=== PATIENT | female | born 1990 | race Caucasian/White ===

== ENCOUNTER → 2021-05-06 13:02 | Outpatient (CLI) | payer BC, SELFPAY ==
--- NOTE | ~2021-05-06 | US_ITS ---
EXAMINATION: US OB <= 14 weeks fetus DATE: 05/06/2021 13:32 INDICATION: Uncertain dates. TECHNIQUE: Real-time transabdominal obstetric ultrasound. FINDINGS: No prior studies for comparison. The uterus measures 13.2 x 5.7 x 7.3 cm. There is an intrauterine gestational sac, with pole id entified. The crown rump length measures 2.33 cm, which correlates with a estimated gestational age of 9 weeks 0 days. heart tones are identified measuring 168 BPM. IMPRESSION: 1. SL IUP with an EGA of 9 weeks, 0 days (EDC by current ultrasound of 12/09/2021). Reviewed, dictated and finalized at location A. E TAILER IMPRESSION: 1. SL IUP with an EGA of 9 weeks, 0 days (EDC by current ultrasound of 2).
== END ==
PROVIDERS: Visit Provider Obstetrics & Gynecology
DX: Z34.91 Encounter for supervision of normal pregnancy, unspecified, first trimester (principal); Z3A.09 9 weeks gestation of pregnancy
CPT/HCPCS: 76801

== ENCOUNTER 2021-11-22 13:56 | Outpatient (RCR) | payer BC, SELFPAY ==
[2021-10-18 10:03] VITALS: BP 107/53; PULSE 80
[2021-11-22 14:35] VITALS: BP 108/66
== END 2021-12-27 14:54 | disposition home or self-care (01) ==
LOC: ANHOBOP 13:56
PROVIDERS: Visit Provider Obstetrics & Gynecology Gynecology
DX: O24.419 Gestational diabetes mellitus in pregnancy, unspecified control (principal); Z3A.32 32 weeks gestation of pregnancy; Z3A.37 37 weeks gestation of pregnancy
CPT/HCPCS: 59025

== ENCOUNTER 2021-12-01 15:55 | Inpatient (IN) | payer BC, SELFPAY ==
[2021-12-01] VITALS (16 sets, daily range): BP systolic 102–125; BP diastolic 54–81; PULSE 62–106; RESP 16–18; TEMP 35.9–36.1; O2SAT 99; BMI 45.2
[2021-12-01 16:53] LABS: Basophils Percent Auto 0.1 % (0.2-1.2); Eosinophils Absolute Auto 0.2 K/mm3 (0-0.3); Eosinophils Percent Auto 1.4 % (0-4.4); Hematocrit 36.7 % (37.0-47.0); Hemoglobin 12.2 g/dL (12.0-15.0); Immature Granulocyte Absolute 0.06 K/mm3 (0.00-0.031); Immature Granulocyte Percent A 0.4 % (0-0.5); Lymphocytes Absolute Auto 2.61 K/mm3 (0.9-3.2); Lymphocytes Percent Auto 18.8 % (18.3-44.2); Mean Corpuscular HGB Conc 33.2 g/dl (32-36); Mean Corpuscular Hemoglobin 27.5 pg (26-34); Mean Corpuscular Volume 82.7 fl (80-100); Mean Platelet Volume 10.1 fl (7.4-10.4); Monocytes Percent Auto 7.3 % (2.6-8.5); Platelet Count Result 405 k/mm3 (150-375); Red Blood Count 4.44 M/mm3 (4.2-5.4); Red Cell Distribution Width 14.1 % (11.5-14.5); White Blood Count 13.9 K/mm3 (4.5-10.0)
[2021-12-01] MEDS: DINOPROSTONE 10 MG VAG INSERT VAGINAL (16:56)
--- NOTE | 2021-12-01 17:02 | LDADM ---
This patient, Betty Sanford, was admitted to Labor/Delivery/Recovery 107 on 12/01/21 at 15:55. Plans for labor, pain management and were discussed with patient. Patient/family oriented to hospital policies and general routines including ID bracelet, bed and alarms, visiting hours, pain management, procedures, bathroom and other care routines, personal items, smoking policy, room service/diet and guest tray routines, infant security routines, and visiting hours. Patient/Family are encouraged to report perceived risks to care and to ask questions if they do not understand what they are told or what they should do. See OBIX for further documentation.
[2021-12-01 17:11] LABS: Glucose Point of Care 139 mg/dl (65-105)
--- NOTE | 2021-12-01 17:11 | WPDANESEPP ---
Anes - Eval Pre Procedure Procedure: Labor epidural Date/Time: 12/01/21 17:11 Pre Op Diagnosis: IOL Patient Data Age: 31 Gender: F Height: 1.71 m Weight: 133 kg Last Vital Signs Pulse 99 12/01/21 17:00 BP 117/59 L 12/01/21 17:00 O2 Del Method Room Air 12/01/21 16:26 Allergies Allergy/AdvReac Type Severity Reaction Status Date / Time Penicillins Allergy Rash Verified 11/13/21 12:32 Home Medications Medication Instructions Recorded Confirmed Type aspirin 81 mg tablet,delayed 81 mg PO DAILY 11/13/21 11/13/21 History release (Owen Low Dose Aspirin) insulin NPH isoph U-100 human 100 8 unit subcut HS 11/13/21 11/13/21 History unit/mL subcutaneous suspension (Novolin N NPH U-100 Insulin isophane) prenat.vits,tim,koq-cfcr-koiaa 1 tablet PO DAILY 11/13/21 11/13/21 History Laboratory Tests 12/01/21 12/01/21 12/01/21 16:45 16:46 16:46 WBC 13.9 K/mm3 H K/mm3 (4.5-10.0) RBC 4.44 M/mm3 M/mm3 (4.2-5.4) Hgb 12.2 g/dL g/dL (12.0-15.0) Hct 36.7 % L % (37.0-47.0) MCV 82.7 fl fl (80-100) MCH 27.5 pg pg (26-34) MCHC 33.2 g/dl g/dl (32-36) RDW 14.1 % % (11.5-14.5) Plt Count 405 k/mm3 H k/mm3 (150-375) MPV 10.1 fl fl (7.4-10.4) Immature Gran % (Auto) 0.4 % % (0-0.5) Neut % (Auto) 72.0 % % (45.5-73.1) Lymph % (Auto) 18.8 % % (18.3-44.2) [place] % (Auto) 7.3 % % (2.6-8.5) Eos % (Auto) 1.4 % % (0-4.4) Baso % (Auto) 0.1 % L % (0.2-1.2) Lymph # (Auto) 2.61 K/mm3 K/mm3 (0.9-3.2) [place] # (Auto) 1.0 K/mm3 H K/mm3 (0.1-0.6) Eos # (Auto) 0.2 K/mm3 K/mm3 (0-0.3) Baso # (Auto) 0.0 K/mm3 K/mm3 (0.0-0.1) Abs Immat Gran (auto) 0.06 K/mm3 H K/mm3 (0.00-0.031) Absolute Neuts (auto) 10.0 K/mm3 H K/mm3 (1.3-6.7) Absolute Nucleated RBC 0.0 K/mm3 K/mm3 (0.0-0.012) Nucleated RBC % 0.0 % % (0.0-0.2) POC Capillary Glucose Pending RPR Pending Blood Type Antibody Screen 12/01/21 16:46 WBC RBC Hgb Hct MCV MCH MCHC RDW Plt Count MPV Immature Gran % (Auto) Neut % (Auto) Lymph % (Auto) [place] % (Auto) Eos % (Auto) Baso % (Auto) Lymph # (Auto) [place] # (Auto) Eos # (Auto) Baso # (Auto) Abs Immat Gran (auto) Absolute Neuts (auto) Absolute Nucleated RBC Nucleated RBC % POC Capillary Glucose RPR Blood Type Pending Antibody Screen Pending Patient hx anesthesia problems: none Family hx anesthesia problems: none Results Review: All pre-operative results and documents have been reviewed as part of the pre-operative evaluation. [facility] Past Medical History Medical History (Updated 12/01/21 @ 17:12 by Katey Leach CRNA) GDM (gestational diabetes mellitus), class A1 Morbid obesity Family History Family History Father Emphysema lung Sibling Abnormality, congenital Sibling Mother Hypertension Type 2 diabetes mellitus Sibling Sibling Abnormality, congenital Grandparent Diabetes mellitus Social History Social History Smoking status: Never smoker Substance use: never Spiritual care concerns: No Exam Day of Procedure 12/01/21 17:11 Patient weight: morbidly obese Heart: regular rate and rhythm and murmur Lungs: normal air movement Airway: Mallampati scale Neurological: alert and oriented
[2021-12-01] MEDS: INSULIN HUMAN NPH (*BKC) 100 UNITS/ML 8 UNITS SUB-Q (22:12)
[2021-12-01 22:17] LABS: Glucose Point of Care 116 mg/dl (65-105)
[2021-12-02] VITALS (141 sets, daily range): BP systolic 78–128; BP diastolic 37–94; PULSE 16–118; RESP 18; TEMP 35.8–36.8; O2SAT 94–100
[2021-12-02 01:57] LABS: Glucose Point of Care 104 mg/dl (65-105)
[2021-12-02] MEDS: fentaNYL CITRATE INJ (*CRX) 100 MCG/2 ML VIAL 50 MCG IV PUSH ×2 (02:36→10:08)
[2021-12-02 06:25] LABS: Glucose Point of Care 108 mg/dl (65-105)
[2021-12-02] MEDS: LACTATED RINGERS 1,000 ML 125 ML IV CONT ×2 (06:28→15:49)
[2021-12-02] MEDS: OXYTOCIN 30 UNITS/NS 500 ML 30 UNITS/500 ML BAG 6 UNITS IV CONT (06:29)
[2021-12-02 07:33] LABS: Rapid Plasma Reagin Non-Reactive (NonReactive)
--- NOTE | 2021-12-02 07:53 | WPDOBADMIT ---
Obstetrics - Admit Note Admission Note: record reviewed. No pertinent additions to the history and/or any subsequent changes in the physical findings that are not consistent with the expected course of the were found. Additions to the history and/or subsequent changes in the physical findings follow. None.
--- NOTE | 2021-12-02 07:54 | PM.OBPNLAB ---
Pain Control Date/time seen: 12/02/21 07:30 Pain control: tolerating well Comments: Having some back pressure and mild cramping Pelvic Exam Dilation (cm): 1 (1.5) Effacement (%): 40 station: -3 Amniotic membrane status: Intact Comments: Vertex Contractions Monitor mode: External Contraction pattern: Irregular Contraction intensity: Mild Status status: Category ll Comments: Occasional variable deceleration. Reassured by moderate variability and accelerations. Assessment and Plan Pitocin rate (mU/min): 4 (Decreased to 2) Assessment: induction ongoing Comments: Discussed plan of care with patient and her spouse. Discussed option for amniotomy versus Eldridge balloon placement. Discussed risks and benefits and expectations of both options. Patient desires Eldridge balloon placement at this time. Eldridge balloon placed through the patient's cervix easily and inflated with 60 mL sterile saline. Tubing secured patient's thigh. Patient tolerated procedure very well with minimal cramping. Pitocin decreased to 2 milliunits per minute due to frequent contraction pattern. Plan to titrate Pitocin up as needed to achieve adequate contraction pattern. Patient may have epidural upon request. When Eldridge balloon is expelled plan for amniotomy. Again discussed plan of care with patient and her spouse and answered questions. Anticipate vaginal .
[2021-12-02 10:18] LABS: Glucose Point of Care 113 mg/dl (65-105)
--- NOTE | 2021-12-02 12:55 | PM.OBPNLAB ---
Pain Control Date/time seen: 12/02/21 12:55 Pain control: tolerating well Pelvic Exam Dilation (cm): 4 (1.5) Effacement (%): 50 station: -3 Amniotic membrane status: Intact Contractions Monitor mode: External Contraction pattern: Irregular Contraction intensity: Mild Status status: Category l Assessment and Plan Assessment: induction ongoing Comments: CNM to bedside. Patient sitting up in bed reports intermittent contractions and cramping. Her partner is present and supportive. Pitocin infusion remains off. Discussed plan of care and recommended exam at this time. Eldridge balloon expelled easily with gentle traction. Cervix 4/50/3 with bulging bag of water and head present. head not ballotable. Discussed plan of care and recommendation for amniotomy. Also discussed option for scalp electrode to enhance monitoring. Patient consents to both. Amniotomy performed with large amount of clear fluid returned. FSE applied successfully. Recommend upright positions and frequent repositioning. Patient plans epidural placement at some point. Plan cervical exam in 2 hours. If no change would start Pitocin. Anticipate vaginal . Blood sugars remained under 120. If over 120 would recommend starting insulin infusion.
[2021-12-02] MEDS: FAMOTIDINE 20 MG TABLET PO (14:02)
[2021-12-02 14:27] LABS: Glucose Point of Care 102 mg/dl (65-105)
--- NOTE | 2021-12-02 17:23 | PM.OBPNLAB ---
Pain Control Date/time seen: 12/02/21 17:20 Pain control: tolerating well and epidural Contractions Monitor mode: External Contraction pattern: Regular Contraction intensity: Moderate Status status: Category ll Comments: Occasional variable decel. Reassured by moderate variability and multiple accelerations. Assessment and Plan Assessment: induction ongoing Plan: continuous present management Comments: Plan to increase pitocin per protocol to achieve adequate contraction pattern. Plan for accuchecks q 2 hours when 6cm or more.
[2021-12-02 18:38] LABS: Glucose Point of Care 78 mg/dl (65-105)
[2021-12-02] MEDS: LACTATED RINGERS 1,000 ML 999 ML IV CONT ×2 (21:08→22:49)
[2021-12-02] MEDS: ONDANSETRON INJ 4 MG/2 ML VIAL IV PUSH (22:49)
[2021-12-03] VITALS (15 sets, daily range): BP systolic 101–141; BP diastolic 49–75; PULSE 56–87; RESP 16–18; TEMP 36.3–37.1; O2SAT 97–100
[2021-12-03] MEDS: OXYTOCIN 30 UNITS/NS 500 ML 30 UNITS/500 ML BAG 125 UNITS IV CONT (01:02)
[2021-12-03 01:19] LABS: Glucose Point of Care 94 mg/dl (65-105)
--- NOTE | 2021-12-03 01:19 | PM.OBPRVD ---
OB - Delivery Note Procedure Delivery date: 12/03/21 Procedure: Events: Gestational Diabetes (GDMA2) Induction method: Per Pitocin Protocol and Per Cervidil Protocol Delivery augmentation: Rupture of Membranes Delivery monitor: External FHT, External Uterine, Internal FHT and Internal Uterine Route of delivery: Episiotomy description: None Laceration Description: Perineal - 2nd Degree and Vaginal Delivery repair: vicryl Specimen: Yes Quantitative Blood Loss (ml): 350 Anesthesia type: Epidural Disposition: Floor Narrative: Patient progressed to complete and began pushing with contractions. Patient made steady progress and CNM was called for . CNM arrived and patient was slightly. Patient pushed with contractions and brought the head to a full crown in a very controlled manner. She delivered the head and the remainder of the body with the next contraction. The was placed skin to skin. there was at least 60 seconds of delayed cord clamping. After that time the cord was doubly clamped and cut. Gentle traction and uterine massage was used to deliver the placenta. The placenta delivered in the normal fashion and was intact. Three vessels present. A second-degree vaginal and perineal laceration was repaired using 3-0 Vicryl suture in a normal fashion. There was excellent hemostasis the remains in the delivery room with the mother and is . Baby Date of : 12/03/21 Time of : 00:29 Weeks of gestation at delivery: 39 gender: Female Weight (pounds): 8 Weight (ounces): 13 presentation: vertex position: Left Occiput Anterior Placenta delivery description: Spontaneous Cord Vessel Description: 3 Vessels and Delayed Cord Clamping score one minute: 9 score five minutes: 9
--- NOTE | 2021-12-03 01:24 | PM.OBDSVD ---
DS: Admitting Diagnosis Discharge Date 12/05/21 Admitting Diagnosis IUP at 39 weeks. GDMA2. Rubella Non-Immune OB - DS: Summary Hospital Course Hospital Course: Uncomplicated OB Procedures : NST and Ultrasound OB Procedures Intrapartum: Spontaneous Vag Delivery OB Procedures: : Other (MMR vaccination) Peripartum Data Delivery Method: Natural Vaginal Laceration Description: Perineal - 2nd Degree and Vaginal - 2nd Degree Episiotomy description: None complications: none Status at Discharge Overall status at discharge: patient is progressing back to baseline Time Spent with Patient Time attestation: Total time spent providing and/or coordinating discharge services: Exam Narrative: Alert and oriented. Mood is pleasant and cooperative. Urinating without difficulty. Denies passing any large clots. Perineum with minimal edema. Const: General: no acute distress Orientation/consciousness: patient oriented x3 Limitations: no limitations Resp: Effort & Inspection: normal respiratory effort Auscultation: clear to auscultation bilaterally Cardio: Rate: regular rate GI: Inspection: normal to inspection Neuro: General: patient oriented x3 Extrem: General: normal to inspection Psych: Appearance: grossly normal Mental Status: mental status grossly normal Affect: normal affect Thought process: Normal thought process present DS: Data Data Completed and Pending Pending studies at discharge: Pending at discharge 12/03/21 00:38 Surgical [PTH] Routine Labs on day of discharge: Labs from last 24 hours 12/02/21 12/02/21 12/02/21 21:42 18:34 14:23 POC Capillary Glucose 94 78 102 RPR 12/02/21 12/02/21 12/02/21 10:15 06:21 01:51 POC Capillary Glucose 113 H 108 H 104 RPR 12/01/21 16:46 POC Capillary Glucose RPR Non-reactive Discharge Plan Discharge Attending physician on discharge: Amanda Martinez Consulting providers: Bernadine Juarez ; Katey Leach ; Steph Aguilar Discharging Clinician: Amanda Martinez Anticipated Discharge Date/Time: 12/05/21 01:28 Patient Disposition: Home, Self-Care Activity: may shower and no straining Diet: as tolerated Discharge Instructions: Education: Mom and Baby Guide Given to: Mother Follow-Up: Call your delivering provider's office for an appointment to be seen in: Call office for appointment Mom and baby should come to the [facility] for the follow-up appointment. Appointment Date/Time: December 06, 2021 at 10:00 am What to expect at your follow-up visit: Physical Assessment Call [phone] if you are unable to keep your appointment time. BREAST CARE: * Wear a snug supportive bra. * For engorgement discomfort: Breast Feeding: * Apply warm moist washcloths * Express milk as needed to relieve engorgement * Wear loose clothing * For sore nipples: * Identify correct latch-on * Apply warm moist washcloths before and after nursing * Air dry nipples after nursing * May apply Lansinoh cream to nipples PERINEAL CARE: * Until bleeding stops, use your ean bottle after urinating * Change your pad frequently throughout the day * You may take sitz baths several times a day (fill your bathtub with warm water and soak for 20 minutes.) Do NOT bathe in the water * No tub baths until seen by your physician - You may shower ACTIVITY: * Rest as much as possible. * Do not exercise or lift anything heavier than your baby (such as laundry or other children.) * Avoid stairs or driving as much as possible. * Do not put anything into the vagina. No douching, tampons, or sexual activity until seen by physician. NOTIFY PHYSICIAN IF YOU HAVE ANY QUESTIONS OR IF ANY OF THE FOLLOWING SYMPTOMS OCCUR: * If your perineum becomes red, swollen, or more painful than what you have experienced in the hospital. * If your
[2021-12-03] MEDS: ACETAMINOPHEN 325 MG TABLET 650 MG PO ×3 (02:36→17:22)
[2021-12-03] MEDS: IBUPROFEN 600 MG TABLET PO ×3 (02:36→17:22)
[2021-12-03] MEDS: WITCH HAZEL 40 PADS 1 PAD TOPICAL (02:38)
[2021-12-03] MEDS: BENZOCAINE 20% AER SPR (*SP) 56 GM CAN 1 SPRAY TOPICAL ×2 (02:38→09:29)
--- NOTE | 2021-12-03 03:27 | ADMGEN ---
This patient, Betty Sanford, was admitted to OB 2nd Floor Room 283-00. Patient/family oriented to hospital policies and general routines including ID bracelet, bed and alarms, visiting hours, pain management, procedures, bathroom and other care routines, personal items, smoking policy, room service/diet, and visiting hours. Information on how to activate the Rapid Response Team has been discussed. Patient/Family are encouraged to report perceived risks to care and to ask questions if they do not understand what they are told or what they should do.
--- NOTE | 2021-12-03 07:52 | PM.OBPNVD ---
OB - PN: Subj Subjective Date/time seen: 12/03/21 07:40 Patient comments: pain well controlled [place] baby status: doing well and other ( attempts made) [place] feeding status: exclusively breast feeding OB - PN: Obj Data Labs CBC & Chem 7: 12/01/21 16:46 Labs: Laboratory Results - last 24 hr 12/02/21 12/02/21 12/02/21 10:15 14:23 18:34 POC Capillary Glucose 113 H 102 78 12/02/21 21:42 POC Capillary Glucose 94 OB - PN A/P Plan day: 0 Plan: routine care Comments: Discussed expected return of bladder sensation after epidural. If unable to urinate, would recommend straight catheterization once. Discussed infant feeding cues and skin to skin contact. Time Spent With Patient Time: Total time spent is greater than 50% in coordination of care (as documented) at patient's floor/unit and/or counseling patient: Review of Systems Review of Systems: All systems reviewed & are unremarkable except as noted in HPI and below Exam Narrative: Alert and oriented. Mood is pleasant and cooperative. Perineum with minimal edema. Laceration approximated. Unable to fully empty bladder. Const: General: no acute distress Orientation/consciousness: patient oriented x3 Limitations: no limitations Resp: Effort & Inspection: normal respiratory effort Auscultation: clear to auscultation bilaterally Cardio: Rate: regular rate GI: Inspection: normal to inspection Neuro: General: patient oriented x3 Extrem: General: normal to inspection Psych: Appearance: grossly normal Mental Status: mental status grossly normal Affect: normal affect Thought process: Normal thought process present
[2021-12-03] MEDS: MULTIVIT/MIN/PREN/FOL AC/IRON TABLET 1 TAB PO (09:28)
[2021-12-03] MEDS: DOCUSATE SODIUM 100 MG CAPSULE PO ×2 (09:28→17:22)
[2021-12-03] MEDS: LANOLIN (LANSINOH) 7.5 GM CREAM 1 APPLIC TOPICAL (09:29)
--- NOTE | 2021-12-03 15:23 | PC.NURSE ---
[id number] Introductions were made, then consulted with patient to assess needs related to . Mother led the conversation with her experience feeding her so far. Mother works well with her with encouragement and education. 1400 - BS checked at 37 mg/dl and reported to primary RN. Encouraged understanding of the benefits of skin to skin (unwrapping infant and placing vertically on her chest), responsive feeding and how to watch for early feeding signs, frequency of feeding on demand about every 8-12 times in 24 hours (every 2-3 hours), milk production, duration of feeding, signs of adequate intake/output and how to record on the feeding sheet. Reviewed positioning and ear, shoulder, hip alignment, supporting the breast, asymmetrical latch (off-center), and leading with the chin with a big open side gape. After a few fussy shallow attempts latched optimally to the right breast in football position. Education given to mother of how to visualize suck/swallow ratios and drinking at the breast. Infant was able to maintain latch without discomfort to mother actively encouraged by parents. Nipple care reviewed with optimal latch and good positioning. Resources used to facilitate learning were used with the visual handouts/ tool/mom and baby guide. Mother voiced understanding of responsive feedings, stimulating with skin to skin, hand expressed colostrum, touch, talking to infant to encourage if it has been 2 -3 hours since the start of the last , to call if infant does not latch or there is discomfort with . Reported to the primary RN. [id number] Consulted with patient to assess needs related to after she called for assistance. Mother works well with her and is holding skin to skin. Reviewed working with , breast, nipples and how to protect the nipples with an optimal deep latch, good positioning, and good hand washing. Left breast assessment shows a small bruise on the areola from a previous attempt. Encouraged understanding the benefits of skin to skin, responding to feeding cues, frequencies of feeding 8-12 times in 24 hours (approximately 2-3 hours), duration of feedings, milk production, intake/output feeding sheet and signs of adequate intake encouraging swallowing at the breast. Reviewed positioning and alignment, supporting breast, off-centered (asymmetrical latch) and leading with the chin with big open wide gape. Infant latched optimally to the left breast in football position. Education given to mother of how to visualize suck/swallow ratios and drinking at the breast. Infant was able to maintain latch without discomfort to mother and is actively effectively. Nipple care reviewed with optimal latch and good positioning. Parents voiced understanding of the education shared, calling for assistance if the infant does not latch or if there is discomfort with and after completes for a 1 hour PP blood sugar on infant. Reported to the primary RN.
--- NOTE | 2021-12-03 17:42 | PC.NURSE ---
1628 - Primary RN is in another patient's room so RN rechecked blood sugar and it resulted at 42 mg/dl. is showing feeding cues in grandmother's arm. RN encouraged to be skin to skin with mother and prepare to breastfeed. [id number] Mother works well with her infant with encouragement. Reviewed working with infant, breast, nipples and how to protect the nipples with an optimal deep latch, good positioning, and good hand washing. Encouraged understanding the benefits of skin to skin, responding to feeding cues, frequencies of feeding 8-12 times in 24 hours (approximately 2-3 hours), duration of feedings, milk production, intake/output feeding sheet and signs of adequate intake encouraging swallowing at the breast. Reviewed positioning and alignment, supporting breast, off-centered (asymmetrical latch) and leading with the chin with big open wide gape. After a few attempts with a shallow latch latched optimally to the left breast in football position. Education given to mother of how to visualize suck/swallow ratios and drinking at the breast. Infant was able to maintain latch without discomfort to mother for 5 min. Infant encouraged to the right breast with a few attempts to achieve an optimal latch to the breast using football positioning. Nipple care reviewed with optimal latch and good positioning. Reviewed with mother how to watch. listen for swallowing to assure is actively , and stimulating for an effecive session. Mother voiced understanding of the education shared, calling for assistance if the infant does not latch or if there is discomfort with . Reported to the primary RN Chapar[place]a the special attention needed to reinforce teaching mother optimal latching for effective to maintain blood sugar.
--- NOTE | 2021-12-03 18:48 | WPDANLDPN2 ---
Anes-Prog Note L&D Date/Time: 12/03/21 18:48 Comfortable throughout: labor and delivery Neuraxial method: epidural Epidural/Spinal procedure site: clean & non-tender Neuro status: Neuro function grossly intact. Cardiovascular status: normal Respiratory status: normal Airway patency: baseline Mental status: baseline Post-Op hydration status: normal Vital Signs: Last Vital Signs Temp 36.3 C L 12/03/21 12:05 Pulse 74 12/03/21 12:05 Resp 18 12/03/21 12:05 BP 108/58 L 12/03/21 12:05 Pulse Ox 100 12/03/21 12:05 O2 Del Method Room Air 12/03/21 12:15 Pain score (VAS): 0 I/O: Intake & Output 12/03/21 12/03/21 12/03/21 07:59 15:59 23:59 Output Total 86 Balance -86 Patient feedback: Patient satisfied with anesthetic care.
[2021-12-04 05:45] LABS: Hemoglobin 10.3 g/dL (12.0-15.0)
--- NOTE | 2021-12-04 07:45 | PM.OBPNVD ---
OB - PN: Subj Subjective Date/time seen: 12/04/21 07:35 Patient comments: pain well controlled [place] baby status: doing well and nursing well [place] feeding status: exclusively breast feeding Narrative: Feeling mild cramping especially when . She has some perineal tenderness but the discomfort is well controlled with Ibuprofen. OB - PN: Obj Data Labs CBC & Chem 7: 12/04/21 04:10 Labs: Laboratory Results - last 24 hr 12/04/21 04:10 Hgb 10.3 L Hct 31.0 L OB - PN A/P Plan day: 1 Plan: routine care Comments: Discussed baby blues vs post depression. Reviewed resources. Pt plans for an IUD PP for contraception. Time Spent With Patient Time: Total time spent is greater than 50% in coordination of care (as documented) at patient's floor/unit and/or counseling patient: Review of Systems Review of Systems: All systems reviewed & are unremarkable except as noted in HPI and below Exam Narrative: Alert and oriented. Mood is pleasant and cooperative. Urinating without difficulty. Denies passing any large clots. Perineum with minimal edema. Partner present and supportive. Const: General: no acute distress Orientation/consciousness: patient oriented x3 Limitations: no limitations Resp: Effort & Inspection: normal respiratory effort Auscultation: clear to auscultation bilaterally Cardio: Rate: regular rate GI: Inspection: normal to inspection : General: Yes bladder normal to palpation Skin: General skin exam: normal color Neuro: General: patient oriented x3 Extrem: General: normal to inspection Psych: Appearance: grossly normal Mental Status: mental status grossly normal Affect: normal affect Thought process: Normal thought process present
[2021-12-04 07:56] LABS: Glucose Point of Care 83 mg/dl (65-105)
--- NOTE | 2021-12-04 08:56 | WPDANLDPN2 ---
Anes-Prog Note L&D Date/Time: 12/04/21 08:56 Comfortable throughout: labor and delivery Neuraxial method: epidural Epidural/Spinal procedure site: clean & non-tender Neuro status: Neuro function grossly intact. Cardiovascular status: normal Respiratory status: normal Airway patency: baseline Mental status: baseline Post-Op hydration status: normal Vital Signs: Last Vital Signs Temp 37.1 C 12/03/21 23:40 Pulse 81 12/03/21 23:40 Resp 18 12/03/21 23:40 BP 141/75 H 12/03/21 23:40 Pulse Ox 98 12/03/21 23:40 O2 Del Method Room Air 12/03/21 20:12 Pain score (VAS): 0 Patient feedback: Patient satisfied with anesthetic care.
[2021-12-04] MEDS: ACETAMINOPHEN 325 MG TABLET 650 MG PO ×2 (09:44→16:43)
[2021-12-04] MEDS: DOCUSATE SODIUM 100 MG CAPSULE PO ×2 (09:44→16:43)
[2021-12-04] MEDS: MULTIVIT/MIN/PREN/FOL AC/IRON TABLET 1 TAB PO (09:44)
[2021-12-04] MEDS: IBUPROFEN 600 MG TABLET PO ×2 (09:45→16:43)
--- NOTE | 2021-12-04 11:43 | PC.NURSE ---
[id number] Consulted with patient to assess needs related to . Mother led conversation with her experience with feeding baby so far. Mother works well with her infant with encouragement. Reviewed working with , breast, nipples and how to protect the nipples with an optimal deep latch, good positioning, and good hand washing. Encouraged understanding the benefits of skin to skin, responding to feeding cues, frequencies of feeding 8-12 times in 24 hours (approximately 2-3 hours), duration of feedings, milk production, intake/output feeding sheet and signs of adequate intake encouraging swallowing at the breast. Reviewed positioning and alignment, supporting breast, off-centered (asymmetrical latch) and leading with the chin with big open wide gape. Infant latched optimally to the right breast in football position. Education given to mother of how to visualize suck/swallow ratios and actively keep drinking at the breast. was able to maintain latch without discomfort to mother. Nipple care reviewed with optimal latch and good positioning. Resources used to facilitate learning were used from the visual handout/ tool/mom and baby guide. Mother voiced understanding of the education shared, calling for assistance if the does not latch or if there is discomfort with . RN encouraged mother to call for latch assistance on the left breast as well and mother voiced she will call. Reported to the primary RN Carrol.
[2021-12-04 19:22] VITALS: BP 108/66; PULSE 70; RESP 18; TEMP 36.6; O2SAT 100
[2021-12-05 08:15] VITALS: BP 111/61; PULSE 73; RESP 16; TEMP 36.8; O2SAT 98
[2021-12-05] MEDS: DOCUSATE SODIUM 100 MG CAPSULE PO (10:10)
[2021-12-05] MEDS: ACETAMINOPHEN 325 MG TABLET 650 MG PO (10:10)
[2021-12-05] MEDS: MULTIVIT/MIN/PREN/FOL AC/IRON TABLET 1 TAB PO (10:10)
[2021-12-05] MEDS: MEASLES,MUMPS,RUBELLA VACCINE 0.5 ML VIAL SUB-Q (10:11)
--- NOTE | 2021-12-05 16:32 | PC.NURSE ---
[id number] Mother verbalizes she is able to independently latch with appropriate positioning/alignment. She denies any nipple discomfort and is responsively . is currently meeting outcomes for weight, output, jaundice and feeding frequencies of 8-12 times in 24 hours. Mother declines any additional assistance/education at this time. Mother is encouraged to call for assistance if her doesn?t latch or there is discomfort with latching. Mother voiced understanding of information shared and mom and baby guide reviewed for additional resource information . Reported to the primary RN.
[2021-12-06 09:45] VITALS: BP 120/79; PULSE 79; RESP 20; TEMP 37.2; O2SAT 100
== END 2021-12-05 12:15 | disposition home or self-care (01) | DRG 807 ==
LOC: ANHLDR 12-03 01:30 → ANHOB2 12-03 04:06
PROVIDERS: Advanced Practice Midwife; Admitting Provider Obstetrics & Gynecology Gynecology; PCP Family Medicine; Visit Provider Obstetrics & Gynecology Gynecology
DX: O24.429 Gestational diabetes mellitus in childbirth, unspecified control (principal); Z37.0 Single live birth; Z3A.39 39 weeks gestation of pregnancy; O36.8330 Maternal care for abnormalities of the fetal heart rate or rhythm, third trimester, not applicable or unspecified; O70.1 Second degree perineal laceration during delivery
CPT/HCPCS: 36415; 82948; 85014; 85018; 85025; 86592; 86850; 86900; 86901; 88307; 90710; A9270; J1815; J2405; J2590; J2795; J3010; J7120

== ENCOUNTER → 2023-06-17 09:39 | Outpatient (CLI) | payer BC, SELFPAY ==
--- NOTE | ~2023-06-17 | US_ITS ---
Pelvic ultrasound. Clinical History: IUD placement Technique: Realtime transabdominal and transvaginal scanning of the pelvis was performed. Color flow Doppler and Doppler spectral analysis were performed. Findings: The uterus is anteverted. The endometrial stripe has a thickness of 4 mm. IUD probably pre sent in the endometrial cavity. No focal mass is identified. The right ovary measures 2.4 x 2.6 x 1.9 cm. No significant right ovarian or adnexal mass is seen. The left ovary measures 3.7 x 2.2 x 3.2 cm. No significant left ovarian or adnexal mass is seen. There is no evidence of free fluid in the cul de sac. Impression: IUD probably in satisfactory position in the endometrial cavity. Reviewed, dictated and finalized at [facility]. TRIMMER Impression: IUD probably in satisfactory position in the endometrial cavity.
== END ==
PROVIDERS: PCP Advanced Practice Midwife; Visit Provider Advanced Practice Midwife
DX: Z30.430 Encounter for insertion of intrauterine contraceptive device (principal)
CPT/HCPCS: 76856

== ENCOUNTER 2025-01-11 11:21 | Outpatient (CLI) | payer BC, SELFPAY ==
--- OUTSIDE RECORDS SUMMARY | 2025-01-11 10:30 | XMS_ITS | Encounter Summary ---
Author Organization [facility] Address [address] [place] [address] Care Team Providers Care Rn Sexual Assault Name Role Phone Jessica Peterson DO Primary Care Provider [phone]- [phone] Encounter Details Date Type Department Care Team (Late st Contact Info) Description 01/11/2025 10:30 AM CDT Office Visit [facility] Oncology and Hematology - [place] [address] [place] [address] Charley Millan MD [address] [place] [address] Reactive thrombocytosis (Primary Dx) Social History Tobacco Use Types Packs/Day Years Used Date Smoking Tobacco: Never Smokeless Tobacco: Never Alcohol Use Standard Drinks/Week Comments Yes 0 (1 standard drink = 0.6 oz pur e alcohol) Occasionally Comments Unknown Sex and Gender Information Value Date Recorded Sex Assigned at Not on file 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 Gender Identity Not on file Sexual Orientation Not on file documented as of this encounter Last Filed Vital Signs Vital Sign Reading Time Taken Comments Blood Pressure 124/83 01/11/2025 10:00 AM CDT Pulse 70 01/11/2025 10:00 AM CDT Temperature 36.4 C (97.6 F) 01/11/2025 10:00 AM CDT Respiratory Rate 15 01/11/2025 10:0 0 AM CDT Oxygen Saturation 98% 01/11/2025 10: 00 AM CDT Inhaled Oxygen Concentration - - Weight 140.4 kg (309 lb 9.6 oz) 025 10:00 AM CDT Height 172.7 cm (5' 8) 01/11/2025 10:0 0 AM CDT Body Mass Index 47.07 01/11/2025 10:00 AM CDT documented in this encounter Plan of Treatment Upcoming Encounters Date Type Department Care Team (Late st Contact Info) Description 02/08/2025 4:30 PM CDT Telephone Check Up [facility] Oncology and Hematology [facility] [address] [facility] [address] [place] [phone] Pancho Xavier MD [address] [facility] [address] [place] [address] Scheduled Orders Name Type Priority Associated Diagnoses Orde r Schedule CBC WITH DIFFERENTIAL Lab Stat Reactive thrombocytosis Expected: 02/08/2025, Expires: 01/11/2026 IRON, TIBC, AND PERCENT SATURATION Lab Routine Reactive thrombocytosis Expected: 01/11/2025, Expires: 01/11/2026 FERRITIN Lab Routine Reactive thrombocytosis Expected: 01/11/2025, Expires: 01/11/2026 SEDIMENTATION RATE Lab Routine Reactive thrombocytosis Expected: 01/11/2025, Expires: 01/11/2026 C-REACTIVE PROTEIN Lab Routine Reactive thrombocytosis Expected: 01/11/2025, Expires: 01/11/2026 documented as of this encounter Visit Diagnoses Diagnosis Reactive thrombocytosis- Primary documented in this encounter Care Teams Rn Sexual Assault Relationship Specialty Start Date End Date Jessica Peterson DO [facility] [facility] [place] [address] [place] [id number] PCP - General Family Practice 01/11/25 documented as of this encounter
--- OUTSIDE RECORDS SUMMARY | 2025-01-11 11:41 | XMS_ITS | Clinical Summary ---
Author Organization [facility] Address [address] [place] [address] Phone Care Team Providers Care Airport Engineer Name Role Phone Jessica Peterson Primary Care Provider [phone]- [phone] Allergies Active Allergy Reactions Criticality Noted Date Comments Penicillins Rash Low 01/11/2025 Medications No known medications Active Problems Problem Noted Date Diagnosed Date Reactive thrombocytosis 01/11/2025 Encounters Date Type Department Care Team Description 01/11/2025 10:30 AM CDT Office Visit [facility] [place] [address] [phone] Charley Millan MD Reactive thrombocytosis (Primary Dx) from Last 3 Months Family History Medical History Relation Name Comments No Known Problems Child BLADDER CANCER Father Heart Disease Father smoker Diabetes Mother Breast Cancer Paternal Aunt Ovarian Cancer Paternal Aunt Relation Name Status Comments Child Alive Father Alive Mother Alive Paternal Aunt Unknown Social History Tobacco Use Types Packs/Day Years Used Date Smoking Tobacco: Never Smokeless Tobacco: Never Alcohol Use Standard Drinks/Week Comments Yes 0 (1 standard drink = 0.6 oz pur e alcohol) Occasionally Comments Unknown Sex and Gender Information Value Date Recorded Sex Assigned at Not on file 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 Gender Identity Not on file Sexual Orientation Not on file Last Filed Vital Signs Vital Sign Reading [...] Mass Index 47.07 01/11/2025 10:00 AM CDT Plan of Treatment Upcoming Encounters Date Type Department Care Team (Late st Contact Info) Description 02/08/2025 4:30 PM CDT Telephone Check Up [facility] Oncology and Hematology - [place] [address] [facility] [address] [place] [address] Pancho Xavier MD [address] [facility] [address] [place] [address] Health Maintenance Due Date Last Done Comments DTAP/TDAP/TD VACCINES (1 - Tdap) 2009 HEPATITIS B VACCINES (1 of 3 - 19+ 3-dose series) 01/2010 HPV/Cotest (21-29) 09/24/2011 HPV VACCINES (1 - 3-dose SCDM series) 2017 CERVICAL CANCER SCREENING 2020 HPV/Cotest (30-65) 2020 PAP SMEAR 2020 Preventative Visit- Commercial 05/18/2024 INFLUENZA VACCINE (#1) 2024 Insurance [facility] BLUE ACCESS/TRUE BLUE PPO BS BLUE ACCESS/TRUE BLUE PPO Care Teams Airport Engineer Relationship Specialty Start Date End Date Jessica Peterson DO [facility] [place] [address] [place] [address] PCP - General Family Practice 01/11/25
[2025-01-11 11:43] LABS: Hematocrit 41.3 % (37.0-47.0); Hemoglobin 13.2 g/dL (12.0-15.0); Immature Granulocyte Percent A 0.2 % (0-0.5); Lymphocytes Absolute Auto 3.05 K/mm3 (0.9-3.2); Mean Corpuscular HGB Conc 32.0 g/dl (32-36); Mean Corpuscular Hemoglobin 26.9 pg (26-34); Mean Corpuscular Volume 84.3 fl (80-100); Nucleated Red Blood Cells Absolute Auto 0.000 K/mm3 (0.0-0.012); Nucleated Red Blood Cells Perc 0.0 % (0.0-0.2); Platelet Count Result 464 k/mm3 (150-375); Red Blood Count 4.90 M/mm3 (4.2-5.4); White Blood Count 11.0 K/mm3 (4.5-10.0)
[2025-01-11 13:23] LABS: Iron 90 ug/dL (37-170)
[2025-01-11 13:26] LABS: CRP 1.1 mg/dL (<1.0)
[2025-01-11 13:32] LABS: Percent Iron Saturation 31 % (20-50)
[2025-01-11 14:04] LABS: Ferritin 50.20 ng/mL (6.24-137)
== END 2025-01-11 11:22 | disposition home or self-care (01) ==
PROVIDERS: PCP Family Medicine; Visit Provider Internal Medicine
DX: D75.838 Other thrombocytosis (principal)
CPT/HCPCS: 36415; 82728; 83540; 83550; 85025; 85652; 86140